=== PATIENT | male | born 1940 | race Caucasian/White ===

== ENCOUNTER 2023-07-13 09:36 | Outpatient (CLI) | payer MEDICARE, OTHER, SELFPAY ==
--- NOTE | 2023-07-13 09:34 | DI.RAD_ITS ---
Exam(s) XR HIP LT AP LAT ONLY EXAM: XR HIP LT AP LAT ONLY CLINICAL HISTORY: LEFT HIP PAIN. TECHNIQUE: 2D digital imaging was performed. Two views. COMPARISON: DOC,DX MO HIPS BILATERAL 2 VIEWS EACH from 07/30/2019 DOC,DX MO HIP LEFT 2V from 01/21/2021 FINDINGS: BONES: No acute fracture is present. No bony destructive lesion is seen. There has been no change in the alignment of the left hip prosthesis. There are no abnormal surrounding bony lucencies. JOINTS: No dislocation present. Severe narrowing of the L5-S1 disc space is noted. SOFT TISSUE: Normal. IMPRESSION: Stable appearance of left hip prosthesis. DATA REPOSITORY: RADIATION DOSE DELIVERED:
--- NOTE | 2023-07-13 10:00 | DI.RAD_ITS ---
Exam(s) XR LUMBAR SPINE AP, LAT EXAM: XR LUMBAR SPINE AP, LAT CLINICAL HISTORY: eval lumbar spine. TECHNIQUE: 2D digital imaging was performed. Five views. COMPARISON: No exams were available for comparison FINDINGS: BONES: No fracture or destructive lesion. Vertebral body heights are maintained. Bilateral total hip prostheses. Prominent facet degenerative changes at L4-5 causing slight spondylolisthesis. No spon dylolysis. DISKS: Prominent endplate osteophytes throughout endplate osteophytes worst at L1-2 and L2-3. Sever e L5-S1 disc space narrowing. Mild narrowing of the L2-3 and L3-4 disc spaces. ALIGNMENT: Lumbar spinal alignment is within normal limits. SOFT TISSUE: Normal. IMPRESSION: Advanced degenerative changes. DATA REPOSITORY: RADIATION DOSE DELIVERED:
== END 2023-07-13 09:37 | disposition home or self-care (01) ==
PROVIDERS: PCP Family Medicine; Referring Provider Family Medicine; Visit Provider Student in an Organized Health Care Education/Training Program
DX: Z96.642 Presence of left artificial hip joint (principal); M48.00 Spinal stenosis, site unspecified; M70.62 Trochanteric bursitis, left hip; M48.062 Spinal stenosis, lumbar region with neurogenic claudication; Z96.641 Presence of right artificial hip joint
CPT/HCPCS: 20610; 99203; 72100; 73502; J1040

== ENCOUNTER → 2023-10-19 10:23 | Outpatient (BNVA) | payer MEDICARE, OTHER, SELFPAY | PROVIDERS: PCP Family Medicine; Referring Provider Family Medicine; Visit Provider Student in an Organized Health Care Education/Training Program | DX: M48.062 Spinal stenosis, lumbar region with neurogenic claudication (principal); M70.62 Trochanteric bursitis, left hip; M62.58 Muscle wasting and atrophy, not elsewhere classified, other site | CPT/HCPCS: 99214 ==

== ENCOUNTER → 2023-11-06 13:04 | Outpatient (BNVA) | payer MEDICARE, SELFPAY | PROVIDERS: PCP Family Medicine; Referring Provider Family Medicine; Visit Provider Student in an Organized Health Care Education/Training Program | DX: M48.062 Spinal stenosis, lumbar region with neurogenic claudication (principal); M70.62 Trochanteric bursitis, left hip; M54.32 Sciatica, left side; Z96.642 Presence of left artificial hip joint | CPT/HCPCS: 99215 ==

== ENCOUNTER 2024-02-13 11:46 | Outpatient (CLI) | payer MEDICARE, SELFPAY ==
--- NOTE | 2024-02-13 06:00 | DI.RAD_ITS ---
Exam(s) XR PAIN CLINIC LUMBAR SP 2V EXAM: XR PAIN CLINIC LUMBAR SP 2V CLINICAL HISTORY: DX: Lumbar radiculopathy TECHNIQUE: 2D and realtime digital imaging was performed. CONTRAST MATERIAL: Refer to procedure report. COMPARISON: No exams were available for comparison FINDINGS: Fluoroscopy was provided for Dr. Rodriguez during the performance of a lumbar epidural steroid injection. Please refer to the procedure report for complete details. Ka,r=5.37 mGy IMPRESSION: RADIATION DOSE DELIVERED: 0.0 0.0 0
[2024-02-13 12:11] VITALS: BP 169/86; PULSE 65; RESP 20; TEMP 36.7; O2SAT 98
--- NOTE | 2024-02-13 12:46 | PDOC.PAIN_ITS ---
Date of service: 02/13/24 Time of Service: 12:46 Pain Managment Procedure Note Procedure Note Procedure Note: PROCEDURE NOTE LUMBAR EPIDURAL STEROID INJECTION Date of Service: February 13, 2024 Patient:DARREL CHACON? Provider: Sammy Rodriguez DO, MPH DARREL LEONE has been referred to the [facility] for a lumbar epidural steroid injection. Pre-operative diagnosis: Lumbosacral Radiculopathy Post-operative diagnosis: Same Pre-Procedure Pain: VAS= 6 /10 Comments: I previously evaluated him in the office. His symptoms are the same as they were then. On skin examination he has numerous growths on his skin. I recommended that he be evaluated by a galvanizer zinc. DARREL was interviewed and the medical record was reviewed.? There were no medical, pharmacologic, radiographic or other structural contraindications to attempting fluoroscopically guided Lumbar epidural steroid injection.? Risks, potential side effects, indications, and potential benefits of the procedure were reviewed with DARREL.? Questions and concerns were addressed.? After it was clear that DARREL was fully informed about the procedure, the printed consent form was signed by the patient and myself.? DARREL was placed in the prone position on the fluoroscopy table and automated blood pressure cuff and pulse oximeter applied. The skin entry point for entering/approaching the epidural space for the lumbar epidural steroid injection was marked. Following thorough chlorhexadine preparation of the skin and draping and 1% lidocaine infiltration of the skin entry point and subcutaneous tissues, an 18 gauge Touhy needle was placed and advanced under fluoroscopic guidance and with loss of resistance technique into the L5-S1 epidural space. Needle tip placement and depth were aided and confirmed by fluoroscopy. There was no paresthesia or return of blood or CSF through the needle. 1 mls of Omnipaque 240 was injected with clear epidural spread confirmed with fluoroscopy. 80 mg of Depo-Medrol was? injected. This was followed by 1 ml of preservative-free normal saline to flush the steroid out of the needle. There was no unusual discomfort expressed by DARREL. The needle was withdrawn without difficulty. (49 mls of Omnipaque was wasted) DARREL was observed and was without hemodynamic, neurologic, or allergic reactions.? Fluoroscopic images were digitally archived. DARREL's vital signs were stable throughout the procedure and were as recorded in nursing records. Follow up plans and appointments were discussed with DARREL. Post procedure instruction was given as documented in nursing records and having met discharge criteria DARREL was discharged from the [facility]. COMMENTS: No apparent complications. Post-procedure pain: VAS= 6/10. DARREL to contact [facility] as needed. If at least 50% improvement in pain and/or function for at least 3 months is achieved, this procedure can be repeated. I personally performed this entire procedure. SAMMY RODRIGUEZ DO, MPH ABPMR-subspecialty board certification in Pain Medicine [facility]
[2024-02-13 12:58] VITALS: BP 177/79; PULSE 75; RESP 16; O2SAT 95
[2024-02-13] MEDS: Omnipaque 240 MG/ML 50 ML BTL IJ (12:59)
[2024-02-13] MEDS: Epidural Tray 1 EACH MC (12:59)
[2024-02-13] MEDS: methylPREDNISolone ACETATE 80 MG/ML VIAL IJ (13:00)
== END 2024-02-13 11:47 | disposition home or self-care (01) ==
LOC: PC 11:47
PROVIDERS: PCP Family Medicine; Visit Provider Preventive Medicine Occupational Medicine
DX: M54.50 Low back pain, unspecified (principal); M54.17 Radiculopathy, lumbosacral region
CPT/HCPCS: 62323; 72100; J1010; Q9967

== ENCOUNTER 2024-06-26 09:03 | Outpatient (CLI) | payer MEDICARE, SELFPAY ==
[2024-06-26 08:50] VITALS: BP 169/87; PULSE 68; RESP 12; TEMP 36.6; O2SAT 97
[2024-06-26 09:22] VITALS: O2SAT 96
[2024-06-26 09:30] VITALS: O2SAT 96
--- NOTE | 2024-06-26 09:34 | PDOC.PAIN ---
Date of service: 06/26/24 Time of Service: 09:34 US Guided Injections Type of Ultrasound Guided Injection: Left Trochanteric Bursa Injection Pre-Procedural Evaluation Tenderness to palpation over the left trochanteric bursa Referral Patient has been referred to the [facility] for Left Trochanteric Bursa Injection for a chief complaint of Left lateral hip pain Pre-Procedural Pain Score Pre-procedural pain score: 7/10 Reason for Exam Left trochanteric bursitis Patient Interview Patient was interviewed and medical record reviewed: Yes There were no contraindications to performing an US guided procedure. Risks,expected side effects, potential benefits were reviewed. The patient consent form was signed and witnessed. Standard time out procedure was performed. Patient Safety No skin contraindications for this procedure. Procedure Description No sedation given for procedure Patient was placed in the right lateral recumbent position and the following Pulse Ox applied. Pre-Procedure ultrasound scanning performed using a Linear 9 MHz probe Site Preparation Chloroprep Local Anesthesia Skin and subcutaneous tissues anesthetized with: 3 mL of Lidocaine 1%. A 21 G 3.5 Pajunk ultrasound needle was placed under live US guidance using an in-plane approach to the target area. After visualization of the needle tip at the target area Bupivacaine 0.5% (3cc) and Dep-Medrol 80mg per cc (1 cc) were used. Total of Injectate/Medication Note: 4 cc Negative aspiration for blood. [place] were removed without difficulty. Ultrasound images were captured and stored. Patient Mental Status Patient was alert and awake during procedure Vital Signs Vital signs were stable throughout the procedure and recorded by nursing. Follow Up/Discharge Follow up plans and appointments were discussed with patient. Post procedure instruction was given as documented in nursing documentation. Discharge criteria met and patient discharged from Pain Management Center: Yes Post Procedure Pain Post Procedure Pain: 0/10 Patient tolerated procedure well Procedure Outcome: Successful Comments: to the left lateral thigh - still has low back pain Bursa Injection (Left trochanteric bursa) Non US Guided Injections Procedure Description Patient was placed in the right lateral recumbent position Post Procedure Pain Post Procedure Pain: 0/10
[2024-06-26] MEDS: Bupivacaine 0.5% Pres-Free 10 ML VIAL IJ (10:40)
[2024-06-26] MEDS: Nerve Block Tray 1 EACH MC (10:41)
[2024-06-26] MEDS: methylPREDNISolone ACETATE 40 MG/ML VIAL IJ (10:41)
== END 2024-06-26 09:04 | disposition home or self-care (01) ==
LOC: PC 09:04
PROVIDERS: PCP Family Medicine; Visit Provider Preventive Medicine Occupational Medicine
DX: M70.62 Trochanteric bursitis, left hip (principal); M25.552 Pain in left hip
CPT/HCPCS: 20611; J0665; J1010